=== PATIENT | female | born 1970 | race Caucasian/White ===

== ENCOUNTER 2020-02-14 15:45 | Outpatient (RCR) | payer BC | END 2020-02-14 16:30 | disposition still patient (30) | LOC: PT 15:45 | DX: M25.511 Pain in right shoulder (principal); Z98.890 Other specified postprocedural states ==

== ENCOUNTER → 2020-05-16 | Outpatient (RCR) | payer BC | END | disposition home or self-care (01) | LOC: PT | DX: Z98.890 Other specified postprocedural states (principal) ==

== ENCOUNTER 2020-05-22 11:30 | Outpatient (RCR) | payer BC | END 2020-06-25 16:30 | disposition home or self-care (01) | LOC: PT 11:30 | DX: Z98.890 Other specified postprocedural states (principal) ==